=== PATIENT | male | born 1975 | race Caucasian/White ===

== ENCOUNTER 2017-03-20 13:42 | Emergency (ER) | payer SELFPAY ==
[2017-03-20] MEDS ORDERED: NAPR500T PO (14:13)
[2017-03-20] MEDS ORDERED: HYDR-757 PO (14:13)
[2017-03-20] MEDS ORDERED: SULF1TAB35 PO (15:05)
== END 2017-03-20 15:23 | disposition home or self-care (01) ==
DX: M25.462 Effusion, left knee (principal); M70.41 Prepatellar bursitis, right knee; M17.9 Osteoarthritis of knee, unspecified; F17.210 Nicotine dependence, cigarettes, uncomplicated; X50.1XXA Overexertion from prolonged static or awkward postures, initial encounter